=== PATIENT | female | born 1955 | race African-American/Black ===

== ENCOUNTER → 2016-06-11 | Outpatient (CLI) | payer MEDICAID | LOC: RAD 11:51 | PROVIDERS: ATTEND Physician Assistant | DX: R10.10 Upper abdominal pain, unspecified (principal) | CPT/HCPCS: 74000 ==

== ENCOUNTER → 2016-06-21 | Outpatient (CLI) | payer MEDICAID ==
[2016-06-21 13:40] LABS: ABSOLUTE BASOPHILS # (AUTO) 0.1 10^3/uL (0.0-0.2); ABSOLUTE EOSINOPHILS # (AUTO) 0.7 10^3/uL (0.0-0.6); ABSOLUTE LYMPHOCYTES (AUTO) 1.6 10^3/uL (0.5-4.7); ABSOLUTE MONOCYTES (AUTO) 0.8 10^3/uL (0.1-1.4); ABSOLUTE NEUT (AUTO) 3.6 10^3/uL (1.7-8.2); BASOPHILS % (AUTO) 1.1 % (0-2); EOSINOPHILS % (AUTO) 10.3 % (0-6); HEMATOCRIT 40.4 % (36.0-47.0); HEMOGLOBIN 12.3 g/dL (12.0-15.5); HGB HCT DIFFERENCE -3.5; LYMPHOCYTES % (AUTO) 23.4 % (13-45); MEAN CORPUSCULAR HEMOGLOBIN 26.4 pg (27.0-33.4); MEAN CORPUSCULAR HGB CONC 30.5 g/dL (32.0-36.0); MEAN CORPUSCULAR VOLUME 86 fl (80-97); MONOCYTES % (AUTO) 11.3 % (3-13); RED BLOOD COUNT 4.68 10^6/uL (3.72-5.28); RED CELL DISTRIBUTION WIDTH 15.7 % (11.5-14.0); SEGMENTED NEUTROPHILS % (AUTO) 53.9 % (42-78); WHITE BLOOD COUNT 6.7 10^3/uL (4.0-10.5)
[2016-06-21 14:03] LABS: ALANINE AMINOTRANSFERASE 87 U/L (9-52); ALKALINE PHOSPHATASE 165 U/L (38-126); ANION GAP 10 (5-19); ASPARTATE AMINO TRANSFERASE 64 U/L (14-36); BILIRUBIN,TOTAL 0.4 mg/dL (0.2-1.3); BLOOD UREA NITROGEN 13 mg/dL (7-20); CALCIUM 11.8 mg/dL (8.4-10.2); CARBON DIOXIDE 25 mmol/L (22-30); CHLORIDE 109 mmol/L (98-107); CREATINE KINASE 106 U/L (30-135); GLUCOSE 76 mg/dL (75-110); POTASSIUM 3.8 mmol/L (3.6-5.0); SODIUM 144.3 mmol/L (137-145); TOTAL PROTEIN 7.5 g/dL (6.3-8.2)
[2016-06-21 14:13] LABS: CREATINE KINASE MB 2.34 ng/mL (<4.55); TROPONIN I 0.022 ng/mL
== END ==
LOC: LAB 13:14
PROVIDERS: ATTEND Physician Assistant
DX: E83.52 Hypercalcemia (principal); R07.9 Chest pain, unspecified
CPT/HCPCS: 36415; 80053; 82330; 82550; 82553; 83970; 84443; 84484; 85025

== ENCOUNTER → 2016-06-27 | Outpatient (CLI) | payer MEDICAID | LOC: RAD 12:55 | PROVIDERS: ATTEND Physician Assistant | DX: R10.30 Lower abdominal pain, unspecified (principal); N20.0 Calculus of kidney | CPT/HCPCS: 74000 ==

== ENCOUNTER → 2016-08-17 | Outpatient (CLI) | payer MEDICAID | LOC: OD 09:44 | PROVIDERS: ATTEND Physician Assistant Medical | DX: R06.02 Shortness of breath (principal) | CPT/HCPCS: 71020 ==

== ENCOUNTER → 2016-09-12 | Outpatient (CLI) | payer MEDICAID | LOC: OD 15:47 | PROVIDERS: ATTEND Physician Assistant Medical | DX: R06.02 Shortness of breath (principal); I51.7 Cardiomegaly | CPT/HCPCS: 71020 ==

== ENCOUNTER → 2016-12-31 | Outpatient (CLI) | payer MEDICAID ==
--- NOTE | 2016-12-31 17:19 | WOMENS IMAGING REPORT ---
EXAM DESCRIPTION: BILAT SCREENING MAMMO W/CAD COMPLETED DATE/TIME: 12/31/2016 11:38 am REASON FOR STUDY: ROUTINE SCREENING; Z12.31 Z12.31 ENCNTR SCREEN MAMMOGRAM FOR MALIGNANT NEOPLASM O F JUAN COMPARISON: None. TECHNIQUE: Standard craniocaudal and mediolateral oblique views of each breast recorded using GoGoPina l acquisition. LIMITATIONS: None. FINDINGS: RIGHT BREAST MASSES: Circumscribed mass in the deep breast adjacent to the chest wall, seen on the MLO view only, located 19.5 cm from the nipple. This has smooth borders. CALCIFICATIONS: Benign calcifications, most of which appear dermal. ARCHITECTURAL DISTORTION: None. DEVELOPING DENSITY: None. ASYMMETRY: None noted. OTHER: No other significant findings. LEFT BREAST MASSES: No suspicious masses. CALCIFICATIONS: Benign calcifications, most of which appear dermal. ARCHITECTURAL DISTORTION: None. DEVELOPING DENSITY: None. ASYMMETRY: None noted. OTHER: No other significant findings. Read with the assistance of CAD. .[facility] - R2 Cenova Version 1.3 .[facility] Imaging - R2 Cenova Version 1.3 .[facility] Imaging - R2 Cenova Version 2.4 .[facility] - R2 Cenova Version 2.4 .[facility] - R2 Weaver Wire Loom Version 9.2 IMPRESSION: Circumscribed mass in the deep right breast as described. No worrisome mammographic fin dings in the left breast. BREAST DENSITY: a. The breasts are almost entirely fatty. BIRAD: 0 Incomplete: Needs Additional Imaging Evaluation and/or prior Mammograms for Comparison. RECOMMENDATION: RECOMMENDED FOLLOW-UP: Recommend additional evaluation with ultrasound of the right breast. Recommend routine screening mammography of the left breast. The patient will be contacted for additional imaging. COMMENT: The patient has been notified of the results by letter per [place] requirements. Additional no tification policies are in place for contacting patient with suspicious or incomplete findings. Quality ID #[id number]: [employer] recommends an annual screening mammogram for women aged 40 years or over. This facility utilizes a reminder system to ensure that all patients receive reminder letters, and/or direct phone calls for appointments. This includes reminders for routine scr eening mammograms, diagnostic mammograms, or other Breast Imaging Interventions when appropriate. Th is patient will be placed in the appropriate reminder system. The [employer] (ACR) has developed recommendations for screening MRI of the breast s in certain patient populations, to be used in conjunction with mammography. Breast MRI surveillanc e may be appropriate for women with more than 20% lifetime risk of developing breast cancer as deter mined by genetic testing, significant family history of the disease, or history of mantle radiation f or Hodgkins Disease. ACR Practice Guidelines 2008. TECHNICAL DOCUMENTATION: FINDING NUMBER: (1) ASSESSMENT: (1) JOB ID: [id number] [employer]- All Rights Reserved
== END ==
LOC: WI 11:12
PROVIDERS: ATTEND Physician Assistant
DX: Z12.31 Encounter for screening mammogram for malignant neoplasm of breast (principal); N63 Unspecified lump in breast
CPT/HCPCS: 77067; G0202

== ENCOUNTER → 2017-01-04 | Outpatient (CLI) | payer MEDICAID ==
--- NOTE | 2017-01-04 12:38 | RADIOLOGY REPORT (SQ) ---
EXAM DESCRIPTION: CHEST PA/LATERAL COMPLETED DATE/TIME: 01/04/2017 12:23 pm REASON FOR STUDY: SHORTNESS OF BREATH COMPARISON: 09/12/2016 EXAM PARAMETERS: NUMBER OF VIEWS: two views TECHNIQUE: Digital Frontal and Lateral radiographic views of the chest acquired. RADIATION DOSE: NA LIMITATIONS: none FINDINGS: LUNGS AND PLEURA: No opacities, masses or pneumothorax. No pleural effusion. MEDIASTINUM AND HILAR STRUCTURES: No masses or contour abnormalities. HEART AND VASCULAR STRUCTURES: Heart size normal. There is tortuosity of the descending aorta. BONES: No acute findings. HARDWARE: None in the chest. OTHER: No other significant finding. IMPRESSION: 1. No acute abnormality in the chest. 2. There is tortuosity of the descending aorta. TECHNICAL DOCUMENTATION: JOB ID: [id number] [facility]- All Rights Reserved
== END ==
LOC: OD 12:12
PROVIDERS: ATTEND Physician Assistant Medical
DX: R06.02 Shortness of breath (principal)
CPT/HCPCS: 71020

== ENCOUNTER → 2017-01-04 | Outpatient (CLI) | payer MEDICAID ==
--- NOTE | 2017-01-04 11:14 | RADIOLOGY REPORT (SQ) ---
EXAM DESCRIPTION: U/S ABDOMEN LIMITED W/O DOP COMPLETED DATE/TIME: 01/04/2017 9:37 am REASON FOR STUDY: ABN LFT (R94.5) R94.5 ABNORMAL RESULTS OF LIVER FUNCTION STUDIES COMPARISON: None. TECHNIQUE: Dynamic and static grayscale images acquired of the abdomen and recorded on PACS. Additio nal selected color Doppler and spectral images recorded. LIMITATIONS: None. FINDINGS: PANCREAS: Head and body of the pancreas are normal. The tail was obscured by gas. LIVER: 14.7 cm. No masses. Normal echotexture. Evaluation is slightly limited because of bowel gas . LIVER VASCULATURE: Normal directional flow of the main portal vein and hepatic veins. GALLBLADDER: No stones. Normal wall thickness. No pericholecystic fluid. ULTRASOUND-DETECTED AN'S SIGN: Negative. INTRAHEPATIC DUCTS AND COMMON DUCT: Common bile duct is normal at 5 mm. There is no intrahepatic yaneli kodak dilatation. INFERIOR VENA CAVA: Normal flow. AORTA: No aneurysm. RIGHT KIDNEY: Normal size, 10.5 cm. Normal echogenicity. No solid or suspicious masses. No hydroneph rosis. No calcifications. PERITONEAL AND RIGHT PLEURAL SPACE: No ascites or effusions. OTHER: No other significant findings. IMPRESSION: Essentially normal right upper quadrant ultrasound. Evaluation of the liver was slightl y limited because of bowel gas. TECHNICAL DOCUMENTATION: JOB ID: [id number]- All Rights Reserved
== END ==
LOC: RAD 09:02
PROVIDERS: ATTEND Physician Assistant
DX: R94.5 Abnormal results of liver function studies (principal)
CPT/HCPCS: 76705

== ENCOUNTER → 2017-01-11 | Outpatient (CLI) | payer MEDICAID ==
--- NOTE | 2017-01-11 17:24 | WOMENS IMAGING REPORT ---
EXAM DESCRIPTION: U/S BREAST UNILATERAL, COMPL COMPLETED DATE/TIME: 01/11/2017 12:58 pm REASON FOR STUDY: NODULAR DENSITY N63 UNSPECIFIED LUMP IN BREAST COMPARISON: None. TECHNIQUE: Real-time and static grayscale imaging performed of the right breast targeted to the area of mammographic concern. Selected color Doppler images recorded. LIMITATIONS: None. FINDINGS: In the far right upper outer quadrant, a 6 x 9 mm lymph node is present, which correlates with the nodule described on 12/31/2016. IMPRESSION: No suspicious findings detected by ultrasound. BIRAD: 1 Negative. RECOMMENDATION: RECOMMENDED FOLLOW-UP: Please continue yearly bilateral screening in December 2017 COMMENT: The [employer] (ACR) has developed recommendations for screening MRI of the breasts in certain patient populations, to be used in conjunction with mammography. Breast MRI s urveillance may be appropriate for women with more than 20% lifetime risk of developing breast cancer as determined by genetic testing, significant family history of the disease, or history of mantle r adiation for Hodgkins Disease. ACR Practice Guidelines 2008. TECHNICAL DOCUMENTATION: JOB ID: [id number] [employer]- All Rights Reserved
== END ==
LOC: WI 11:24
PROVIDERS: ATTEND Physician Assistant
DX: N63 Unspecified lump in breast (principal)
CPT/HCPCS: 76641

== ENCOUNTER 2017-02-06 23:30 | Emergency (ER) | payer MEDICAID ==
[2017-02-06 23:38] VITALS: BP 156/90
--- NOTE | 2017-02-07 00:56 | ER Document Report ---
ED General - General Chief Complaint: Accidental Overdose Stated Complaint: POSSIBLE ACCIDENTAL OVERDOSE Time Seen by Provider: 02/07/17 00:43 Notes: Patient is a 61-year-old female presents with complaints of accidentally taking a second Brilinta tonight. She has a history of coronary disease. She says that she is also having chest pains off and on now for several months. She saw quality process auditor. On January 23 they did a heart catheterization which was negative for any obstructions. She says that a try to figure out why she still continues have some recurrent chest pains. She seems to attribute towards her atorvastatin medication. She said she noticed that she was having these pains after she starts medication and also her doctor's notes that her liver enzymes have been rising since starting this medication. She is interested in possibly changing to a different statin. She denies any fevers. No difficulty breathing. No vomiting. No current chest pain at this time. No other complaints at this time. TRAVEL OUTSIDE OF THE [place] IN LAST 30 DAYS: No - Related Data Allergies/Adverse Reactions: Penicillins Allergy (Severe, Verified 02/06/17 23:33) rash, itch, resp. distress Past Medical History - Social History Smoking Status: Former Smoker Frequency of alcohol use: Social Family History: Arthritis, CAD, DM, Hyperlipidemia, Hypertension, Malignancy, Thyroid Disfunction - Past Medical History Cardiac Medical History: Reports: Hx Heart Attack - ? pt states unconfirmed by MD > 10 years ago, Hx Hypertension Pulmonary Medical History: Reports: Hx Asthma - Last attack 1 year ago, Hx COPD Renal/ Medical History: Denies: Hx Peritoneal Dialysis GI Medical History: Musculoskeltal Medical History: Reports Hx Arthritis - all over Infectious Medical History: Past Surgical History: Reports: Hx Section - Immunizations Immunizations up to date: No Hx Diphtheria, Pertussis, Tetanus Vaccination: No Review of Systems - Review of Systems Notes: My Normal Review Basic REVIEW OF SYSTEMS: CONSTITUTIONAL : Denies fever, chills, or sweats. Denies recent illness. EENT: Denies eye, ear, throat, or mouth pain or symptoms. Denies nasal or sinus congestion. CARDIOVASCULAR: Intermittent chest pain. RESPIRATORY: Denies cough, cold, or chest congestion. Denies shortness of breath, difficulty breathing, or wheezing. GASTROINTESTINAL: Denies abdominal pain. Denies nausea, vomiting, or diarrhea. Denies constipation. Last BM: MUSCULOSKELETAL: Denies neck or back pain or joint pain or swelling. SKIN: Denies rash or skin lesions. NEUROLOGICAL: Denies altered mental status or loss of consciousness. Denies headache. Denies weakness or paralysis or loss of use of either side. Denies problems with gait or speech. Denies sensory or motor loss. ALL OTHER SYSTEMS REVIEWED AND NEGATIVE. Physical Exam - Vital signs Vitals: Temp Pulse Resp BP Pulse Ox 97.8 F 79 20 156/90 H 96 02/06/17 23:33 02/06/17 23:33 02/06/17 23:33 02/06/17 23:33 02/06/17 23:33 - Notes Notes: General Appearance: Well nourished, alert, cooperative, no acute distress, no obvious discomfort. Well-appearing. Vitals: reviewed, See vital signs table. Head: no swelling or tenderness to the head Eyes: PERRL, EOMI, Conjuctiva clear Mouth: No decreasd moisture Lungs: No wheezing, No rales, No rhonci, No accessory muscle use, good air exchange bilaterally. Heart: Normal rate, Regular rythm, No murmur, no rub Abdomen: Normal BS, soft, No rigidity, No abdominal tenderness, No guarding, no rebound, no abdominal masses, no organomegaly Extremities: strength 5/5 in all extremities, good pulses in all extremities, no swelling or tenderness in the extremities, no edema. Skin: warm, dry, appropriate color, no rash Neuro: speech clear, oriented x 3, normal affect, responds appropriately to questions. Course - Re-evaluation Re-evalutation: 02/07/17 06:15 Patient presents with complaints of excellently taking her extra Brilinta. I do not think that she will have any severe comp occasions from this. She has no active bleeding or signs of bleeding. She does not have any petechiae on exam. Patient otherwise feels well except for her concerned that her liver enzymes have been slowly increasing since starting the atorvastatin and also she has been having body aches and muscle aches including chest pain. She says that she did decrease the dose of her atorvastatin by cutting her pills in half. She says that the episodes of pain in her chest and body aches is much less since doing so. She wants to know about switching to a different medication and same class which may be helpful. I informed her that we can try simvastatin. I told her that she may still have some the same reactions but we can at least try to see if her symptoms are less with being on this medication. Also she can follow-up with her doctor and have her liver enzymes rechecked. I did do an EKG is negative. I did not get cardiac enzymes because she just had a negative coronary heart cath 3 weeks ago. Patient encouraged to return to ER if she has worsening pain, difficulty breathing, or feels unwell. Patient agrees with plan and will be discharged home. Dictation of this chart was performed using voice recognition software; therefore, there may be some unintended grammatical errors. - Vital Signs Vital signs: Temp Pulse Resp BP Pulse Ox 97.8 F 79 20 156/90 H 96 02/06/17 23:33 02/06/17 23:33 02/06/17 23:33 02/06/17 23:33 02/06/17 23:33 - EKG Interpretation by Me Additional EKG results interpreted by me: 02/07/17 02:17 EKG is reviewed and interpreted by me. EKG shows normal sinus rhythm with a rate of [address] segment elevation or depression. No ischemic T-wave inversions. Patient has small Q waves in the lateral precordial leads which are unchanged in comparison to old EKG from May 13, 2016. AK interval is prolonged. QRS duration and QTc intervals are within normal range. Discharge - Discharge Clinical Impression: Medication error Chest pain Qualifiers: Chest pain type: unspecified Qualified Code(s): R07.9 - Chest pain, unspecified Condition: Good Disposition: HOME, SELF-CARE Additional Instructions: Please stop taking the atorvastatin. Please start taking the simvastatin instead. Please return to the ER immediately if you have recurrent chest pain that is worsening, difficulty breathing, or feel unwell. Please inform your doctor of the switch of your medications and have her recheck your liver enzymes to make sure they are improving. Please stop taking the medication if it causes increasing pain or makes you feel unwell after you take it and follow up very closely with your primary care doctor. Prescriptions: Simvastatin 5 mg PO DAILY #20 tablet Referrals: UVALDO ARORA PA [Primary Care Provider] - 02/08/17
--- NOTE | 2017-02-07 07:52 | EKG REPORT ---
SEVERITY:- ABNORMAL ECG - SINUS RHYTHM FIRST DEGREE AV BLOCK LEFT AXIS DEVIATION LEFT VENTRICULAR HYPERTROPHY NONSPECIFIC T ABNORMALITIES, INFERIOR LEADS : Confirmed by: Lev Pagan MD 07-Feb-2017 07:51:57
== END 2017-02-07 02:48 | disposition home or self-care (01) ==
LOC: ER 23:30
DX: R07.9 Chest pain, unspecified (principal); T50.901A Poisoning by unspecified drugs, medicaments and biological substances, accidental (unintentional), initial encounter; Z87.891 Personal history of nicotine dependence
CPT/HCPCS: 93005; 93010; 99284

== ENCOUNTER → 2017-03-15 | Outpatient (CLI) | payer MEDICAID ==
--- NOTE | 2017-03-15 10:23 | RADIOLOGY REPORT (SQ) ---
EXAM DESCRIPTION: CT ABD/PELVIS NO ORAL OR IV COMPLETED DATE/TIME: 03/15/2017 9:29 am REASON FOR STUDY: ABNORMAL LFT'S R94.5 ABNORMAL RESULTS OF LIVER FUNCTION STUDIES COMPARISON: None. TECHNIQUE: CT scan of the abdomen and pelvis performed without intravenous or oral contrast. Images reviewed with lung, soft tissue, and bone windows. Reconstructed coronal and sagittal MPR images revi ewed. All images stored on PACS. All CT scanners at this facility use dose modulation, iterative reconstruction, and/or weight based d osing when appropriate to reduce radiation dose to as low as reasonably achievable (ALARA). [facility]: Dose Right [facility]: CareDose [facility]: Dose Right [facility]: Teradose 4D [facility]: Smart Technologies RADIATION DOSE: Up-to-date CT equipment and radiation dose reduction techniques were employed. CTDIv ol: 11.2 mGy. DLP: 530 mGy-cm.mGy. LIMITATIONS: None. FINDINGS: LOWER CHEST: No significant findings. No nodules or infiltrates. NON-CONTRASTED LIVER, SPLEEN, ADRENALS: Evaluation limited by lack of IV contrast. No identified sign ificant masses. PANCREAS: No masses. No peripancreatic inflammatory changes. GALLBLADDER: No identified stones by CT criteria. No inflammatory changes to suggest cholecystitis. RIGHT KIDNEY AND URETER: No suspicious masses. Assessment limited by lack of IV contrast. No signif icant calcifications. No hydronephrosis or hydroureter. LEFT KIDNEY AND URETER: No suspicious masses. Assessment limited by lack of IV contrast. There is a staghorn calculus. Mild hydronephrosis is present. There is no hydroureter AORTA AND RETROPERITONEUM: No aneurysm. No retroperitoneal masses or adenopathy. BOWEL AND PERITONEAL CAVITY: No obvious masses or inflammatory changes. No free fluid. APPENDIX: Normal. PELVIS, BLADDER, AND ABDOMINAL WALL:No abnormal masses. No free fluid. Bladder normal. BONES: No significant findings. OTHER: No other significant finding. IMPRESSION: There are intrarenal calculi in the left kidney including a staghorn calculus resulting mild hydronephrosis but no hydroureter. COMMENT: Quality ID # [id number]: Final reports with documentation of one or more dose reduction techniques (e.g., Automated exposure control, adjustment of the mA and/or kV according to patient size, use of iterative reconstruction technique) TECHNICAL DOCUMENTATION: JOB ID: [id number] [employer]- All Rights Reserved
== END ==
LOC: RAD 09:14
PROVIDERS: ATTEND Family Medicine
DX: R94.5 Abnormal results of liver function studies (principal); N20.0 Calculus of kidney; N13.30 Unspecified hydronephrosis
CPT/HCPCS: 74176

== ENCOUNTER 2017-03-20 11:12 | Emergency (ER) | payer MEDICAID ==
--- NOTE | 2017-03-20 12:04 | ER Document Report ---
ED GI/ - General Chief Complaint: Vaginal Bleeding Stated Complaint: VAGINAL BLEEDING Time Seen by Provider: 03/20/17 11:25 Mode of Arrival: Ambulatory Information source: Patient Notes: Patient is a 61-year-old female who presents to the ER today for vaginal bleeding since having a uterine biopsy yesterday. Patient states that she did not expect to be bleeding on that she bled quite a bit over the night. She states that she had multiple large blood clots passed. She states that she did call the doctor's office, Dr. Altman, who performed the procedure yesterday and was advised to go in there so that he could cauterize and stop the bleeding , but instead she decided to come to the emergency department. TRAVEL OUTSIDE OF THE [place] IN LAST 30 DAYS: No - Related Data Allergies/Adverse Reactions: Penicillins Allergy (Severe, Verified 03/20/17 11:22) rash, itch, resp. distress Home Medications: Current Home Medications Aspirin [Aspirin 81 mg Chewable Tablet] 81 mg PO DAILY 03/20/17 [History] Beclomethasone Dipropionate [Qvar] 1 puff IH BID PRN 03/20/17 [History] Fluticasone Propionate [Flonase Nasal [place] 50 Mcg/[place] 16 gm] 1 spray NAREB DAILY 03/20/17 [History] Simvastatin [Zocor 5 mg Tablet] 5 mg PO QHS 03/20/17 [History] Ticagrelor [Brilinta 90 mg Tablet] 90 mg PO Q12 03/20/17 [History] Past Medical History - General Information source: Patient - Social History Smoking Status: Former Smoker Chew tobacco use (# tins/day): No Frequency of alcohol use: None Drug Abuse: None Family History: Arthritis, CAD, DM, Hyperlipidemia, Hypertension, Malignancy, Thyroid Disfunction Patient has suicidal ideation: No Patient has homicidal ideation: No - Past Medical History Cardiac Medical History: Reports: Hx Heart Attack - ? pt states unconfirmed by MD > 10 years ago, Hx Hypercholesterolemia, Hx Hypertension Pulmonary Medical History: Reports: Hx Asthma - Last attack 1 year ago, Hx COPD Renal/ Medical History: Denies: Hx Peritoneal Dialysis GI Medical History: Musculoskeltal Medical History: Reports Hx Arthritis - all over Infectious Medical History: Past Surgical History: Reports: Hx Section, Hx Genitourinary Surgery - polyp removed - Immunizations Immunizations up to date: No Hx Diphtheria, Pertussis, Tetanus Vaccination: No Review of Systems - Review of Systems Constitutional: No symptoms reported EENT: No symptoms reported Cardiovascular: No symptoms reported Respiratory: No symptoms reported Gastrointestinal: No symptoms reported Genitourinary: No symptoms reported Female Genitourinary: See HPI Musculoskeletal: No symptoms reported Skin: No symptoms reported Hematologic/Lymphatic: No symptoms reported Neurological/Psychological: No symptoms reported Physical Exam - Vital signs Vitals: Temp Pulse Resp BP Pulse Ox 98.1 F 116 H 20 106/80 97 03/20/17 11:21 03/20/17 11:21 03/20/17 11:21 03/20/17 11:21 03/20/17 11:21 - Notes Notes: PHYSICAL EXAMINATION: GENERAL: Well-appearing and in no acute distress. HEAD: Atraumatic, normocephalic. EYES: Pupils equal round and reactive to light, extraocular movements intact, sclera anicteric, conjunctiva are normal. NECK: Normal range of motion, supple without lymphadenopathy LUNGS: CTAB and equal. No wheezes rales or rhonchi. HEART: Regular rate and rhythm without murmurs ABDOMEN: Soft, no tenderness. No guarding, no rebound EXTREMITIES: Normal range of motion, no pitting edema. No cyanosis. NEUROLOGICAL: Cranial nerves grossly intact. Normal sensory/motor exams. PSYCH: Normal mood, normal affect. SKIN: Warm, Dry, normal turgor, no rashes or lesions noted Course - Re-evaluation Re-evalutation: 03/20/17 13:34 Hemoglobin is 13 here. Patient to go across the street to Dr. Altman's office as instructed earlier today by him. - Vital Signs Vital signs: Temp Pulse Resp BP Pulse Ox 98.1 F 116 H 18 106/80 97 03/20/17 11:21 03/20/17 11:21 03/20/17 11:25 03/20/17 11:21 03/20/17 11:21 - Laboratory Result Diagrams: 03/20/17 12:27 03/20/17 12:27 Laboratory results interpreted by me: 03/20/17 03/20/17 12:27 12:27 RDW 17.5 H Chloride 114 H Carbon Dioxide 19 L Est GFR (Non-Af Amer) 57 L Calcium 11.7 H Direct Bilirubin 0.6 H AST 203 H ALT 293 H Albumin 3.2 L Discharge - Discharge Clinical Impression: Postoperative vaginal bleeding following genitourinary procedure Condition: Stable Disposition: HOME, SELF-CARE Additional Instructions: PLEASE GO TO DR. ALTMAN'S OFFICE TO GET CAUTERIZED INSTRUCTED ON THE PHONE TODAY. Return immediately for any new or worsening symptoms. Referrals: ROSALINDA ALTMAN MD [EMERITUS] - Follow up as needed
[2017-03-20 12:40] LABS: ABSOLUTE BASOPHILS # (AUTO) 0.1 10^3/uL (0.0-0.2); ABSOLUTE EOSINOPHILS # (AUTO) 0.3 10^3/uL (0.0-0.6); ABSOLUTE LYMPHOCYTES (AUTO) 1.7 10^3/uL (0.5-4.7); ABSOLUTE MONOCYTES (AUTO) 0.9 10^3/uL (0.1-1.4); ABSOLUTE NEUT (AUTO) 4.6 10^3/uL (1.7-8.2); BASOPHILS % (AUTO) 1.3 % (0-2); EOSINOPHILS % (AUTO) 3.8 % (0-6); HEMATOCRIT 38.3 % (36.0-47.0); HGB HCT DIFFERENCE 0.7; LYMPHOCYTES % (AUTO) 22.9 % (13-45); MEAN CORPUSCULAR HEMOGLOBIN 30.7 pg (27.0-33.4); MEAN CORPUSCULAR HGB CONC 33.9 g/dL (32.0-36.0); MEAN CORPUSCULAR VOLUME 91 fl (80-97); MONOCYTES % (AUTO) 11.5 % (3-13); RED BLOOD COUNT 4.22 10^6/uL (3.72-5.28); RED CELL DISTRIBUTION WIDTH 17.5 % (11.5-14.0); SEGMENTED NEUTROPHILS % (AUTO) 60.5 % (42-78); WHITE BLOOD COUNT 7.6 10^3/uL (4.0-10.5)
[2017-03-20 13:08] LABS: ALANINE AMINOTRANSFERASE 293 U/L (9-52); ALBUMIN 3.2 g/dL (3.5-5.0); ALKALINE PHOSPHATASE 118 U/L (38-126); ANION GAP 10 (5-19); ASPARTATE AMINO TRANSFERASE 203 U/L (14-36); BILIRUBIN,DIRECT 0.6 mg/dL (0.0-0.4); BILIRUBIN,TOTAL 0.9 mg/dL (0.2-1.3); BLOOD UREA NITROGEN 12 mg/dL (7-20); CALCIUM 11.7 mg/dL (8.4-10.2); CARBON DIOXIDE 19 mmol/L (22-30); CHLORIDE 114 mmol/L (98-107); CREATININE RESULT 0.99 mg/dL (0.52-1.25); GLUCOSE 105 mg/dL (75-110); TOTAL PROTEIN 7.2 g/dL (6.3-8.2)
[2017-03-20 13:36] VITALS: BP 109/91
== END 2017-03-20 14:05 | disposition home or self-care (01) ==
LOC: ER 11:12
DX: N99.820 Postprocedural hemorrhage of a genitourinary system organ or structure following a genitourinary system procedure (principal); N93.9 Abnormal uterine and vaginal bleeding, unspecified; Z79.899 Other long term (current) drug therapy; Z87.891 Personal history of nicotine dependence
CPT/HCPCS: 36415; 80053; 85025; 99284